=== PATIENT | male | born 1950 | race Caucasian/White ===

== ENCOUNTER 2020-12-03 02:28 | Outpatient (CLI) | payer OTHER, SELFPAY ==
[2020-12-03 12:42] LABS: ALT 32 U/L (16-63); AST 20 U/L (15-37); Alkaline Phosphatase 97 U/L (46-116); Anion Gap 11.1 mmol/L (3-11); BUN 21 mg/dL (7-18); Bilirubin, Total 1.2 mg/dL (0.2-1.0); CO2 25.9 mmol/L (21.0-32.0); CREATININE 1.2 mg/dL (0.70-1.30); Calcium 9.5 mg/dL (8.5-10.1); Calculated LDL 100 mg/dL (<100); Chloride 106 mmol/L (98-107); Cholesterol 174 mg/dL (<200); Glucose 97 mg/dL (74-106); HDL Cholesterol 51 mg/dL (40-60); Potassium 3.8 mmol/L (3.5-5.1); Sodium 143 mmol/L (136-145); Total Protein 7.2 g/dL (6.4-8.2); Triglyceride 117 mg/dL (<150)
[2020-12-03 16:59] LABS: PSA, Screening 2.1 ng/mL (0.0-4.5)
== END 2020-12-03 02:29 | disposition home or self-care (01) ==
PROVIDERS: PCP Nurse Practitioner Family; Visit Provider Nurse Practitioner Family
DX: I10 Essential (primary) hypertension; Z13.220 Encounter for screening for lipoid disorders; Z12.5 Encounter for screening for malignant neoplasm of prostate; N40.0 Benign prostatic hyperplasia without lower urinary tract symptoms
CPT/HCPCS: 36415; 80053; 80061; 84153

== ENCOUNTER 2021-07-08 02:11 | Outpatient (CLI) | payer OTHER, SELFPAY ==
[2021-07-08 13:03] LABS: CREATININE 1.2 mg/dL (0.70-1.30)
[2021-07-08 22:43] LABS: PSA, Screening 2.1 ng/mL (<=4.5)
== END 2021-07-08 02:12 | disposition home or self-care (01) ==
LOC: LOS 02:13
PROVIDERS: PCP Nurse Practitioner Family; Visit Provider Nurse Practitioner Family
DX: I10 Essential (primary) hypertension (principal); N40.0 Benign prostatic hyperplasia without lower urinary tract symptoms; Z12.5 Encounter for screening for malignant neoplasm of prostate
CPT/HCPCS: 36415; 84153; 82565

== ENCOUNTER 2021-08-06 07:47 | Outpatient (CLI) | payer MEDICARE, SELFPAY ==
--- NOTE | 2021-08-06 07:45 | RT.EKG_ITS ---
APPROVED REPORT Exam: Resting ECG Reason for Exam: Pre-op exam Patient Location: O HR:58 bpm ECG Measurements Heart Rate 58 AXIS OH 146 P 38 QRSd 87 QRS 22 QT 412 T 13 QTc 406 Conclusion Sinus bradycardia...rate< 60 Normal Electrocardiogram
== END 2021-08-06 07:48 | disposition home or self-care (01) ==
LOC: DI.CM 07:48
PROVIDERS: PCP Nurse Practitioner Family; Visit Provider Nurse Practitioner Family
DX: Z01.818 Encounter for other preprocedural examination (principal)
CPT/HCPCS: 93010

== ENCOUNTER 2022-06-29 10:02 | Outpatient (REF) | payer MEDICARE, SELFPAY ==
[2022-06-29 14:44] LABS: HCT 44.4 % (40.0-50.0); HGB 14.9 g/dL (13.5-17.5); MCH 30.3 pg (27.0-33.0); MCHC 33.6 % (32.0-36.0); MCV 90 fL (80-95); MPV 12.6 fL (8.0-11.0); Platelet Count 151 10^3/uL (130-400); RBC 4.91 10^6/uL (4.36-5.78); RDW 12.8 % (11.8-14.1); RDW-SD 42.5 fL; WBC 4.39 10^3/uL (4.4-10.8)
[2022-06-29 15:23] LABS: ALT 31 U/L (16-63); AST 21 U/L (15-37); Albumin 4.1 g/dL (3.4-5.0); Alkaline Phosphatase 91 U/L (46-116); Anion Gap 9.4 mmol/L (3-11); BUN 21 mg/dL (7-18); Bilirubin, Total 1.6 mg/dL (0.2-1.0); CO2 27.6 mmol/L (21.0-32.0); CREATININE 1.2 mg/dL (0.70-1.30); Calcium 9.4 mg/dL (8.5-10.1); Calculated LDL 87 mg/dL (<100); Chloride 105 mmol/L (98-107); Cholesterol 161 mg/dL (<200); Estimated GFR 65.06 (mL/min/1.73m2); Glucose 100 mg/dL (74-106); HDL Cholesterol 55 mg/dL (40-60); Potassium 4.4 mmol/L (3.5-5.1); Sodium 142 mmol/L (136-145); Total Protein 7.3 g/dL (6.4-8.2); Triglyceride 97 mg/dL (<150)
[2022-06-29 21:34] LABS: PSA, Screening 2.5 ng/mL (<=6.5)
== END 2022-06-29 10:03 | disposition home or self-care (01) ==
LOC: NCHCN 10:02
PROVIDERS: Visit Provider Family Medicine
DX: I10 Essential (primary) hypertension (principal); N40.0 Benign prostatic hyperplasia without lower urinary tract symptoms; Z12.5 Encounter for screening for malignant neoplasm of prostate
CPT/HCPCS: 80053; 80061; 84153; 85027

== ENCOUNTER 2022-07-02 01:11 | Outpatient (CLI) | payer MEDICARE, SELFPAY ==
--- NOTE | 2022-07-02 | DI.RAD_ITS ---
Exam(s) XR KNEE RT 3V AP,LAT,CLEM EXAM: XR KNEE RT 3V AP,LAT,CLEM CLINICAL HISTORY: RT KNEE PAIN, M25.561,HEALTH MAINTENANCE,Z00.00. TECHNIQUE: 2D digital imaging was performed. COMPARISON: No exams were available for comparison FINDINGS: 3 views No evidence of fracture nor prominent joint effusion. No obvious degenerative changes. Bone density normal. No osseous lesions. No osteophytes. IMPRESSION: No significant osseous findings in the knee. DATA REPOSITORY: RADIATION DOSE DELIVERED:
== END 2022-07-02 01:31 ==
PROVIDERS: Visit Provider Family Medicine
DX: M25.561 Pain in right knee (principal); Z00.00 Encounter for general adult medical examination without abnormal findings
CPT/HCPCS: 73562

== ENCOUNTER → 2022-08-03 08:24 | Outpatient (BNVA) | payer MEDICARE, SELFPAY | PROVIDERS: PCP Family Medicine | DX: S83.411A Sprain of medial collateral ligament of right knee, initial encounter (principal); X58.XXXA Exposure to other specified factors, initial encounter; Y93.73 Activity, racquet and hand sports | CPT/HCPCS: 99203 ==

== ENCOUNTER → 2022-10-12 08:30 | Outpatient (BNVA) | payer MEDICARE, SELFPAY | PROVIDERS: PCP Family Medicine; Referring Provider Family Medicine; Visit Provider Student in an Organized Health Care Education/Training Program | DX: S83.411A Sprain of medial collateral ligament of right knee, initial encounter (principal); X58.XXXA Exposure to other specified factors, initial encounter | CPT/HCPCS: 99213 ==

== ENCOUNTER → 2022-10-28 01:53 | Outpatient (CLI) | payer MEDICARE, SELFPAY ==
--- NOTE | 2022-10-28 12:52 | DI.MRI_ITS ---
Exam(s) MR LOWER JOINT RT WO EXAM: MR LOWER JOINT RT WO CLINICAL HISTORY: PAIN,MCL SPRAIN RT KNEE, S83.411A. TECHNIQUE: Multiplanar multisequence MRI was performed. COMPARISON: CR XR KNEE RT 3V AP,LAT,CLEM from 07/02/2022 FINDINGS: BONES: There is no fracture or contusion pattern. JOINTS: There is thinning of the articular cartilage and mild subchondral edema in the medial patella r facet. There to clear cartilage is otherwise well maintained. There is a moderate joint effusion. TENDONS: Extensor mechanism: Unremarkable. Medial retinaculum: Unremarkable. Lateral retinaculum: Unremarkable. Popliteus: Unremarkable. MUSCLES: Unremarkable. MENISCI: There is a tear in the body of the medial meniscus. There is degenerative signal seen in th e lateral meniscus. SOFT TISSUES: There is a popliteal cyst seen. There is mild edema seen in the soft tissues of the lo wer extremity but no other focal fluid collection is seen. No soft tissue mass is appreciated. LIGAMENTS: Anterior Cruciate: There is mild hyperintense signal seen in the distal ACL which may represent a par tial tear. Posterior Cruciate: Unremarkable. Medial Collateral:There is a small amount of fluid seen around the medial collateral ligament which m ay represent a sprain. No evidence of a tear. Lateral Collateral: There is a sprain of the lateral collateral ligament. There is a small amount of hyperintense signal seen in the proximal fibular collateral ligament which may represent a partial t ear. OTHER: IMPRESSION: 1. Tear of the body of the medial meniscus. 2. Findings suspicious for a partial tear of the distal ACL. 3. MCL sprain. 4. Findings suggestive of a small partial tear of the proximal fibular collateral ligament. 5. Joint effusion. DATA REPOSITORY:
== END ==
PROVIDERS: PCP Family Medicine; Visit Provider Student in an Organized Health Care Education/Training Program
DX: S83.411A Sprain of medial collateral ligament of right knee, initial encounter (principal); S83.241A Other tear of medial meniscus, current injury, right knee, initial encounter; M25.461 Effusion, right knee; X58.XXXA Exposure to other specified factors, initial encounter
CPT/HCPCS: 73721

== ENCOUNTER 2022-11-24 11:59 | Day surgery (SDC) | payer MEDICARE, SELFPAY ==
[2022-11-24] VITALS (8 sets, daily range): BP systolic 68–151; BP diastolic 46–90; PULSE 62–69; RESP 13–18; TEMP 36.1–36.5; O2SAT 94–99; BMI 30.9
--- NOTE | 2022-11-24 10:23 | HPE_ITS ---
Date of service: 11/24/22 Time of Service: 12:55 Assessment and Plan Assessment and plan (1) Complex tear of medial meniscus of right knee: Status: Acute (2) Tear of lateral meniscus of right knee: Status: Acute Assessment and plan: Plan: Educated patient on surgery covering surgical technique, recovery process, benefits and risks including but not limited to risk of infection, blood clot, damage to soft tissue/blood vessels/nerves in detail. After discussion patient gives verbal understanding of risks and elects to proceed with surgery. Patient had opportunity to have questions answered to their satisfaction. They will contact office if issues arise. Patient will continue with right knee arthroscopy with likely medial and lateral meniscectomies and associated procedures with Dr. Saldana I interviewed and examined the patient with Katharine Perez PA-C. I agree with the documentation as above. The assessment and plan were formulated with my direct involvement. Vahe is a 72-year-old active male who presented to the office for pain of the right knee. This pain was mostly over the medial aspect and had failed other nonoperative options. MRI was obtained which demonstrated complex tear the medial meniscus with displaced fragments as well as a complex tear of the lateral meniscus. I called and discussed this with him over the phone. In great detail went over the MRI and also discussed options. Given the failure of other nonoperative options and minimal arthritis on the MRI did offer arthroscopic partial medial and lateral meniscectomies. I discussed the technical details the case. I discussed the necessary time for rehabilitation. I also reviewed potential risks to include bleeding, infection, pain, stiffness, retear, continued symptoms, worsening arthritis, blood clot. All this was once again reviewed today. All of his questions were answered. We will proceed with a right knee arthroscopic intervention. Ulices Saldana MD FAAOS FAAHKS History of Present Illness Narrative: Mr. Delgado is a 72-year-old male who presents to hospital for surgery. He has been experiencing right knee discomfort for over 6 months.?Patient continued to experience discomfort with various activities but most significantly at night causing him to wake up frequently.?Due to continued pain he underwent MRI which revealed medial and lateral meniscus tears. Based on his continued symptoms despite adequate trial of conservative management he was offered and elected to proceed with surgical intervention. Review of Systems Cardiovascular Cardiovascular: Denies chest pain, Denies dyspnea and Denies dyspnea on exertion Respiratory Respiratory: Denies cough, Denies dyspnea and Denies dyspnea on exertion PFSH All Active Problems Hypertension (Chronic ~01/03/11) onset in 1996 Erectile dysfunction (Acute ~01/03/11) BPH without urinary obstruction (Acute ~07/06/11) Dupuytren's disease (Acute) Diagnosed 2012 Internal hemorrhoids (Acute ~10/08/15) Factor V Leiden (Acute) 2010 diagnosed MCL sprain of right knee (Acute) Complex tear of medial meniscus of right knee (Acute) Tear of lateral meniscus of right knee (Acute) Medical History Ankle fracture, right Chickenpox H/O adenomatous polyp of colon (~10/08/15) Lesion of ulnar nerve (~09/07/11) Surgical History H/O colonoscopy (~10/08/15) Hx of repair of right rotator cuff [place] teeth removed Family History Mother , 80's Cancer Father , 80's Hypertension Sister No problems noted. Sister No problems noted. Son No problems noted. Son No problems noted. Daughter No problems noted. Maternal Grandfather Alcohol abuse Paternal Grandfather , 90's No problems noted. Maternal Grandmother , 70's Cancer Paternal Grandmother , 70's No problems noted. Social History Smoking/Tobacco Use Status: Never Second Hand Exposure: Yes Smoking risk assessment performed?: Yes Alcohol Intake: current Alcohol Intake frequency: a few times a week Alcohol type: beer, wine and hard liquor Drug use: Never Substance use type: does not use Details: last alcohol t-14 Caregiver/Support person: No Household members: spouse Housing: house Communication Needs: Corrective Lenses Do you need help understanding health information?: Never Pets and animals: No Sexually active: Yes Do you think of yourself as: straight/heterosexual Current gender identity: male What is your relationship status?: How often do you talk on the phone with friends or family?: three or more times per week How often do you get together with friends or relatives?: three or more times per week How often do you attend catholic or protestant services?: 4 or more times per year Do you belong to any clubs or organized social groups?: no Panel score (0-1 are the most socially isolated patients): 3 What type of physical activity do you participate in: walking, bicycling and other Details: Pickle Ball Duration: 45-60 minutes/day Frequency: 3-4 times per week Asha/Religious: Sabianism Seatbelt use: always Helmet use: Yes Helmet use: sometimes Drive intox or ride w/intox 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 Do you feel safe at home: Yes Do you feel safe in your relationship?: Yes Meds Allergies and Home Medications Allergies Allergy/AdvReac Type Severity Reaction Status Date / Time No Known Allergies Allergy Verified 11/24/22 12:07 Home Medications Medication Instructions Recorded Confirmed Type tadalafil 20 mg tablet (Cialis) 20 mg PO DAILY PRN sexual activity 12/04/20 11/24/22 Rx #20 tabs tamsulosin 0.4 mg capsule (Flomax) 0.4 mg PO DAILY #90 caps 04/30/21 11/24/22 Rx valsartan 320 1 tab PO DAILY #90 tabs 04/30/21 11/24/22 Rx mg-hydrochlorothiazide 25 mg tablet acetaminophen 500 mg tablet 500 mg PO Q6H PRN pain #60 tabs 11/24/22 Rx hydrocodone 5 mg-acetaminophen 325 1 tab PO Q6H PRN severe pain #6 11/24/22 Rx mg tablet tabs ibuprofen 600 mg tablet 600 mg PO TID PRN pain #60 tabs 11/24/22 Rx iulziqrh-nxqlejsl-qtptb acid 400 1 tab PO DAILY 11/24/22 11/24/22 History mcg-vit K 20 mcg-lycop 300 mcg tablet Exam Const General: cooperative and no acute distress Resp Effort & Inspection: normal respiratory effort and able to speak in complete sentences Auscultation: clear to auscultation bilaterally, no rales, no rhonchi and no wheezes Cardio Heart Sounds: S1 normal, S2 normal, no murmurs, no rubs and no other Time Spent Time spent with Patient: <40 minutes Time was spent: obtaining and/or reviewing separately otained hiistory and counseling the patient
--- NOTE | 2022-11-24 10:29 | PDOC.DSDIS_ITS ---
Date of service: 11/24/22 Time of Service: 12:56 Discharge Plan Disposition Patient Disposition: Home Condition: Good Discharge Details Reason For Visit: Right knee internal derangement Attending Provider: Ulices Saldana Primary Care Provider: Efrain Rendon Home Meds and New Rx's Prescriptions: New acetaminophen 500 mg tablet 500 mg PO Q6H PRN (Reason: pain) Qty: 60 2RF hydrocodone-acetaminophen 5-325 mg tablet 1 tab PO Q6H PRN (Reason: severe pain) Qty: 6 0RF Rx Instructions: Take one tablet up to every 6 hours as needed for severe postoperative pain ibuprofen 600 mg tablet 600 mg PO TID PRN (Reason: pain) Qty: 60 0RF Continued tadalafil [Cialis] 20 mg tablet 20 mg PO DAILY PRN (Reason: sexual activity) Qty: 20 2RF Rx Instructions: administer approximately 30min before sexual activity; do not use more than 1 dose per 24hrs valsartan-hydrochlorothiazide 320-25 mg tablet 1 tab PO DAILY Qty: 90 3RF tamsulosin [Flomax] 0.4 mg capsule 0.4 mg PO DAILY Qty: 90 3RF No Action Men's Multivitamin 400-20-300 mcg Tablet 1 tab PO DAILY Discharge Instructions Stand Alone Forms: Les Knee Arthroscopy Referrals: Ulices Saldana MD [ [facility] STAFF PHYSICIAN] - Equipment/Supplies: Partial Weight Bearing Crutches Activity:: Elevate Remove Dressings/Wound Care:: 48 hours Shower/Bathe:: 48 hours Diet:: As Tolerated Discharge Orders Discharge Orders: Discharge Order (Routine); Ordered 11/24/22 Ordered By: Katharine Perez DS: Diagnosis Discharge Diagnosis (1) Complex tear of medial meniscus of right knee: Status: Acute (2) Tear of lateral meniscus of right knee: Status: Acute
--- NOTE | 2022-11-24 12:38 | W.ANESPRE ---
General Info Date of Service Date Performed: 11/24/22 Height: 6 ft Weight: 103.3 kg Body Mass Index (BMI): 30.9 Surgical Procedure: Operation Date: 11/24/22 15:10 Proposed Procedure Side Surgeon p Right knee arthroscopy, partial medial and lateral menisectomies Right Ulices Saldana MD Meds Allergies and Home Medications Allergies Allergy/AdvReac Type Severity Reaction Status Date / Time No Known Allergies Allergy Verified 11/24/22 12:07 Home Medication Medication Instructions Recorded tadalafil 20 mg tablet (Cialis) 20 mg PO DAILY PRN sexual activity 12/04/20 #20 tabs tamsulosin 0.4 mg capsule (Flomax) 0.4 mg PO DAILY #90 caps 04/30/21 valsartan 320 1 tab PO DAILY #90 tabs 04/30/21 mg-hydrochlorothiazide 25 mg tablet acetaminophen 500 mg tablet 500 mg PO Q6H PRN pain #60 tabs 11/24/22 hydrocodone 5 mg-acetaminophen 325 1 tab PO Q6H PRN severe pain #6 11/24/22 mg tablet tabs ibuprofen 600 mg tablet 600 mg PO TID PRN pain #60 tabs 11/24/22 jcxnadbg-dnlzmfae-zofod acid 400 1 tab PO DAILY 11/24/22 mcg-vit K 20 mcg-lycop 300 mcg tablet Current Visit Medications: Current Medications Generic Name Dose Route Start Last Admin Trade Name Freq PRN Reason Stop Dose Admin Acetaminophen 1,000 mg 11/24/22 06:00 Acetaminophen 500 Mg Tab PO 12/24/22 05:59 PREOP FRED Acetaminophen 650 mg 11/24/22 10:28 Acetaminophen 325 Mg Tab PO 12/24/22 10:27 Q4H PRN PRN Hydrocodone Bitart/Acetaminophen 0 tab 11/24/22 10:28 Hydrocodone 5/Acetaminophen 325 Tab PO 12/24/22 10:27 Q3H PRN PRN Pain Celecoxib 400 mg 11/24/22 06:00 Celecoxib 200 Mg Cap PO 12/24/22 05:59 PREOP FRED Ringer's Solution 1,000 mls @ 80 mls/hr 11/24/22 06:00 IV 12/23/22 23:59 INFUSION FRED Cefazolin Sodium/Dextrose 2 gm in 50 mls @ 100 mls/hr 11/24/22 06:00 Ancef Duplex IVPB 12/23/22 23:59 PREOP FRED Ondansetron HCl 4 mg/ Sodium 52 mls @ 200 mls/hr 11/24/22 10:28 Chloride IVPB 12/24/22 10:27 Q6H PRN PRN IV Miscellaneous Supplies 1 each 11/24/22 06:00 Iv Access IV 12/23/22 23:59 DIRECTED FRED Sodium Chloride 0 ml 11/24/22 06:00 Normal Saline Flush 10 Ml Syr IV 12/23/22 23:59 PRN PRN Sodium Chloride 0 ml 11/24/22 06:00 Normal Saline 10 Ml Vial IJ 12/23/22 23:59 DIRECTED PRN Sterile Water 0 ml 11/24/22 06:00 Water,Injection,Sterile 10 Ml Vial IJ 12/23/22 23:59 DIRECTED PRN PFSH Active Problems Active Problems: Problem Status Onset Code Hypertension ~01/03/11 I10 Erectile dysfunction ~01/03/11 N52.9 BPH without urinary obstruction ~07/06/11 N40.0 Dupuytren's disease M72.0 Internal hemorrhoids ~10/08/15 K64.8 Factor V Leiden D68.51 MCL sprain of right knee S83.411A Complex tear of medial meniscus of right knee S83.231A Tear of lateral meniscus of right knee S83.281A Medical History Medical History Ankle fracture, right Chickenpox H/O adenomatous polyp of colon (~10/08/15) Lesion of ulnar nerve (~09/07/11) Surgical History Surgical History H/O colonoscopy (~10/08/15) Hx of repair of right rotator cuff [place] teeth removed Tobacco Smoking/Tobacco Use Status: Never Passive smoking exposure: Yes Second hand exposure: Yes Alcohol Alcohol Intake: current Alcohol intake frequency: a few times a week Alcohol type: beer, wine and hard liquor Substance Use Substance use: Never Substance use type: does not use Details: last alcohol t-14 Vital Signs and Lab Results Vital Signs Most Recent Vital Signs in EMR: Most Recent Vital Signs Temp Pulse Resp BP Pulse Ox 36.5 C 65 16 151/90 H 99 11/24/22 12:16 11/24/22 12:16 11/24/22 12:16 11/24/22 12:16 11/24/22 12:16 Lab Results Blood Type / Crossmatch: No Data to Display Complete Blood Count: No Data to Display Complete Metabolic Panel: No Data to Display Liver Function Panel: No Data to Display Coagulation Panel: No Data to Display Cardiac Panel: No Data to Display Arterial Blood Gas: No Data to Display Venous Blood Gas: No Data to Display Pancreas Panel: No Data to Display Thyroid Panel: No Data to Display Infectious Disease: No Data to Display Blood Cultures: No Data to Display Toxicology Panel: No Data to Display Imaging and Studies Imaging and Studies Study information below may be from another EMR and interpreted by another provider. Please see original notes in EMR for more complete details. EKG Summary: Conclusion Sinus bradycardia...rate< 60 Normal Electrocardiogram 08/06/21 Anesthesia Assessment and Plan Anesthesia History Personal History: No History of Anesthesia Complications Family History: No Family History of Anesthesia Complications Exercise Tolerance Exercise Tolerance: Metabolic Equivalents>4 Pertinent Negatives Pertinent Negatives: No Symptoms of GERD (occassional, only food-related), No Major Cardiovascular Symptoms or Complaints, No Major Pulmonary Symptoms or Complaints and No History of CVA/TIA Cardiac & Pulmonary Exam Cardiac Exam: Normal S1/S2 Heart Sounds Pulmonary Exam: Clear Bilateral Breath Sounds Implantable Cardiac Device Does patient have a Pacemaker or an ICD?: No Airway Exam Known Difficult Airway: No Mallampati Class: 1 Mouth Opening: Normal (> 3cm) Thyromental Distance: Greater than 3 cm Neck Range of Motion: Full ROM Neck Circumference: Normal Teeth Condition: Normal Dentition ASA Classification ASA Score: ASA 2 Emergency Case?: No NPO Status NPO Status: NPO Clears >2 hours, Solids >8 hours Anesthesia Plan Resuscitation Status: Full Code Anesthesia Technique: General Anesthesia Airway Planned: LMA Monitors Used: Standard Monitors Preoperative Comments:: Discussed Factor V Leiden diagnosis, 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
[2022-11-24] MEDS: Acetaminophen 500 MG TAB 1000 MG PO (12:43)
[2022-11-24] MEDS: Celecoxib 200 MG CAP 400 MG PO (12:43)
[2022-11-24] MEDS: Lactated Ringers 1,000 ML 80 ML IV (13:03)
[2022-11-24] MEDS: ceFAZolin 2 GM/50 ML BAG IVPB (13:44)
[2022-11-24] MEDS: EPINEPHrine 10 MG/10 ML ML (14:34)
[2022-11-24] MEDS: Bupivacaine 0.5% Pres-Free 30 ML VIAL (14:34)
[2022-11-24] MEDS: ePHEDrine 25 MG/5 ML Syringe IVP ×3 (14:55→15:14)
--- NOTE | 2022-11-24 15:24 | ROE_ITS ---
Date of service: 11/24/22 Time of Service: 14:30 Operative Note Operative Note DATE OF PROCEDURE: 11/24/22 PRE-OP DIAGNOSIS: Right Knee - Medial and Lateral Meniscal Tears POST-OP DIAGNOSIS: same PROCEDURE: Right Knee Arthroscopic Partial Medial and Lateral Menisectomies SURGEON: Ulices Saldana ANESTHESIA TYPE: General LMA/ETT Refer to Anesthesia Record ESTIMATED BLOOD LOSS: 0 PATHOLOGY: none sent COMPLICATIONS: None Patient was transported to: PACU Patient's condition: stable Indications: Vahe was seen in clinic for symptoms of a meniscus tear. This was confirmed based on MRI and exam findings and discussed with him in detail over the phone. Nonoperative measures were exhausted but disability and pain persisted. I discussed knee arthroscopy with meniscal intervention with the patient. I reviewed the risks of the procedure to include, but not limited to, bleeding, infection, pain, stiffness, damage to nerves or vessels, recurrence, blood clot. Despite these risks, the patient elected to proceed. Findings: A diagnostic arthroscopy was performed with the following findings: Suprapatellar Pouch: No significant inflammation, No loose bodies Medial Compartment: Complex medial meniscal tear with multiple loose fragments and both horizontal, radial and vertical components, Intact meniscal root, Grade II chondromalacia, No loose bodies Notch: ACL and PCL were intact Lateral Compartment: Complex horizontal tear with a small radial component and loose fragment, Intact meniscal root, No significant chondromalacia or signs of arthritis, No loose bodies Patellofemoral Compartment: No significant chondromalacia, No apparent patellar maltracking Procedure Description: Vahe was greeted in the preoperative holding area where the correct side was identified and marked. The consent was reviewed with the patient and signed. The history and physical was updated. All questions were answered. He was taken back to the operating room. The patient was placed into the supine position on the operating room table. A nonsterile tourniquet was placed high onto the leg but not used. All bony prominences were well padded. Prophylactic antibiotics in the form of Cefazolin were administered. The right leg was then prepped with Chloraprep and draped in a standard fashion with stockinette and extremity drape. A timeout to confirm correct identity, side and site, procedure, allergies, anesthesia, and medical concerns was performed. The leg was placed into a pneumatic leg cabrera, [id number]. A standard lateral portal was made at the lateral border of the patella tendon in line with the inferior pole of the patella, soft spot. The skin and deep tissue was incised sharply and the blunt trochar was inserted atraumatically. A diagnostic arthroscopy was performed and the findings are listed above. The suprapatellar pouch had no significant inflammatory change. The patellofemoral articulation showed mild chondromalacia as well as good tracking. The lateral gutter had no loose bodies and the medial gutter had no loose bodies. The knee was brought into some valgus stress in extension to open the medial compartment. A medial portal was made, localized by a spinal needle. The portal was created with an #11 blade through skin and capsule under direct visualization avoiding any meniscal injury. A probe was then inserted into the medial compartment. The medial compartment was fully inspected. The chondral surface of the tibia showed Grade II chondromalacia and the surface of the femur showed no significant chondromalacia. The medial meniscus had a complex tear with two large, displaced fragments, posteriorly and medially. There was also complex tearing of the majority of the posterior medial meniscus. After evaluation, the meniscus was debrided down to a stable base using a series of biters and arthroscopic valerio. It was probed afterwards to confirm that the tear had been removed and the meniscus was stable. The notch was then inspected which showed an intact ACL and an intact PCL. The leg was then brought into a figure of 4 position. The lateral compartment was fully inspected with the arthroscope and a probe. The chondral surface of the lateral femur showed no significant chondromalacia. The chondral surface of the lateral tibia showed no significant chondromalacia. The lateral meniscus had a large, complex horizontal tear with a displaced fragment from a small radial tea r. After evaluation, the meniscus was debrided down to a stable base using a series of biters and arthroscopic valerio. It was probed afterwards to confirm that the tear had been removed and the meniscus was stable. The arthroscope was brought back into the suprapatellar pouch and the leg was in full extension. The knee was thoroughly irrigated with the arthroscopic fluid on high flow and pressure. Inflow was stopped and excess fluid was removed. The wounds were closed with 4-0 Nylon. They were dressed with Xeroform, 4x4 gauze, ABD pad, Kerlix and an KRISTINA wrap. A cryo-cuff was applied. The patient tolerated the procedure well and was returned to the Same Day Surgery area in a stable condition suffering no known complication.
--- NOTE | 2022-11-24 16:03 | W.ANESPOSTOP ---
Postoperative Evaluation Date, Time and Location Date Performed: 11/24/22 Time Performed: 16:04 Patient Location: Day Surgery Unit Vital Signs Most Recent Imported Vital Signs: Most Recent Vital Signs Temp Pulse Resp BP Pulse Ox 36.3 C L 67 18 132/75 97 11/24/22 15:32 11/24/22 15:32 11/24/22 15:32 11/24/22 15:32 11/24/22 15:32 Pain Score Most Recent Pain Score: Most Recent Pain Score Pain Level 2 11/24/22 15:32 Assessment Mental Status: Awake (Alert & Oriented to Patient Baseline) Airway and Respiratory Function: Patent airway with normal (patient baseline) respiratory exam Cardiovascular Function: Hemodynamically Stable Hydration Status: Adequately Hydrated Nausea & Vomiting: No Nausea or Vomiting Pain: Pain is tolerable per patient Peripheral Nerve Block: Patient did not receive a nerve block
== END 2022-11-24 16:55 | disposition home or self-care (01) ==
PROVIDERS: PCP Family Medicine; Visit Provider Student in an Organized Health Care Education/Training Program
PROC: (CPT 29870; principal; 2022-11-24 15:00)
DX: M23.231 Derangement of other medial meniscus due to old tear or injury, right knee; M23.261 Derangement of other lateral meniscus due to old tear or injury, right knee; I10 Essential (primary) hypertension; D68.51 Activated protein C resistance
CPT/HCPCS: 29880; J0690; J1100; J2001; J2405; J2704

== ENCOUNTER → 2022-12-07 09:29 | Outpatient (BNVA) | payer MEDICARE, SELFPAY | PROVIDERS: PCP Family Medicine; Referring Provider Family Medicine | DX: Z47.89 Encounter for other orthopedic aftercare (principal); M25.561 Pain in right knee ==

== ENCOUNTER 2023-07-05 14:15 | Outpatient (REF) | payer MEDICARE, SELFPAY ==
[2023-07-05 16:20] LABS: HCT 48.6 % (40.0-50.0); HGB 16.3 g/dL (13.5-17.5); MCH 31.2 pg (27.0-33.0); MCHC 33.5 % (32.0-36.0); MCV 93 fL (80-95); MPV 12.5 fL (8.0-11.0); Platelet Count 184 10^3/uL (130-400); RBC 5.22 10^6/uL (4.36-5.78); RDW 12.7 % (11.8-14.1); RDW-SD 43.7 fL; WBC 4.46 10^3/uL (4.4-10.8)
[2023-07-05 16:30] LABS: Anion Gap 10.1 mmol/L (3-11); BUN 20 mg/dL (7-18); CO2 28.9 mmol/L (21.0-32.0); CREATININE 1.3 mg/dL (0.70-1.30); Calcium 9.8 mg/dL (8.5-10.1); Chloride 107 mmol/L (98-107); Estimated GFR 58.73 (mL/min/1.73m2); Glucose 103 mg/dL (74-106); Potassium 4.4 mmol/L (3.5-5.1); Sodium 146 mmol/L (136-145)
[2023-07-06 19:19] LABS: PSA, Screening 2.7 ng/mL (<=6.5)
== END 2023-07-05 14:16 | disposition home or self-care (01) ==
LOC: NCHCN 14:15
PROVIDERS: PCP Family Medicine; Visit Provider Family Medicine
DX: I10 Essential (primary) hypertension (principal); N40.0 Benign prostatic hyperplasia without lower urinary tract symptoms; Z12.5 Encounter for screening for malignant neoplasm of prostate
CPT/HCPCS: 80048; 84153; 85027

== ENCOUNTER 2024-07-27 08:11 | Outpatient (REF) | payer MEDICARE, SELFPAY ==
[2024-07-27 16:08] LABS: Anion Gap 8.4 mmol/L (3-11); BUN 22 mg/dL (7-18); CO2 28.6 mmol/L (21.0-32.0); CREATININE 1.3 mg/dL (0.70-1.30); Calcium 9.5 mg/dL (8.5-10.1); Chloride 105 mmol/L (98-107); Estimated GFR 58.37 (mL/min/1.73m2); Glucose 108 mg/dL (74-106); Potassium 4.8 mmol/L (3.5-5.1); Sodium 142 mmol/L (136-145)
[2024-07-28 12:16] LABS: PSA, Diagnostic 2.9 ng/mL (<=6.5)
== END 2024-07-27 08:12 | disposition home or self-care (01) ==
LOC: NCHCN 08:11
PROVIDERS: PCP Family Medicine; Visit Provider Family Medicine
DX: N40.0 Benign prostatic hyperplasia without lower urinary tract symptoms (principal); I10 Essential (primary) hypertension
CPT/HCPCS: 80048; 84153